=== PATIENT | female | born 1970 | race Caucasian/White ===

== ENCOUNTER 2023-07-22 12:55 | Emergency (ER) | payer MEDICAID ==
[~2023-07-22] VITALS: Ht 162.6 cm; Wt 63.6 kg
[2023-07-22 13:00] VITALS: BP 157/84; PULSE 83; RESP 16; TEMP 97.7; O2SAT 99
[2023-07-22] MEDS ORDERED: NAPR-56 PO (15:42)
== END 2023-07-22 16:35 | disposition home or self-care (01) ==
LOC: ER 12:57
DX: S42.432A Displaced fracture (avulsion) of lateral epicondyle of left humerus, initial encounter for closed fracture (principal); W19.XXXA Unspecified fall, initial encounter; Y93.89 Activity, other specified; Y92.89 Other specified places as the place of occurrence of the external cause; Y99.8 Other external cause status
CPT/HCPCS: 29105; 73080; 73110; 99284; A6258; A6446; A6449